=== PATIENT | female | born 1960 | race Caucasian/White ===

== ENCOUNTER 2019-09-10 05:24 | Emergency (ER) | payer MEDICARE, SELFPAY ==
[2019-09-10 05:41] VITALS: BP 157/95; PULSE 84; RESP 17; TEMP 36.9; O2SAT 97; BMI 48.9
--- NOTE | 2019-09-10 05:46 | CT_ITS ---
PROCEDURE: CT ABDOMEN PELVIS W CON CLINICAL INDICATION: abdominal pain Diffuse abdominal pain, left upper quadrant pain and cramping COMPARISON: No exams were available for comparison TECHNIQUE: IV Contrast: 75ML OPTIRAY 350 Oral Contrast 20 mL Gastroview Axial images obtained with sagittal and coronal reformats. All CT scans at the facility use one or more dose reduction, viz: automated exposure control, ma/kV adjustment per patient size (including targeted exams where dose is matched to indication, i.e. head), or iterative reconstruction technique. FINDINGS: LOWER THORAX: 3 mm noncalcified nodules present in the right middle lobe laterally nonspecific too small to categorize. Coronary artery calcification and/or stent noted in the LAD. ABDOMEN & PELVIS: Post cholecystectomy changes. The liver, spleen, adrenal glands, pancreas, and kidneys have an unremarkable appearance. No intestinal obstruction or free air. No evidence of appendicitis, intestinal obstruction, free air, or diverticulitis. No pelvic mass abnormal fluid collection or focal inflammatory change. There is degenerative disc disease at L3-L4 and L4-5 IMPRESSION: No acute finding Dictated by: Alessandro Bradshaw MD 09/10/2019 09:04 Electronically signed by Alessandro Bradshaw MD in [place] 09/10/2019 09:04
--- NOTE | 2019-09-10 06:00 | PC.NURSE ---
Patient finished gastrografin - radiology notified.
[2019-09-10 06:16] VITALS: BP 138/69; PULSE 79; RESP 16; TEMP 36.6; O2SAT 98
[2019-09-10 06:20] LABS: Microscopic, Urine URINE MICROSCOPIC (MICROSCOPIC)
[2019-09-10 06:23] LABS: Appearance,Urine CLEAR (Clear); Bilirubin,Urine Negative (Negative); Blood, Urine Negative (Negative); Color,Urine YELLOW (Yellow); Glucose,Urine (UA) Negative (Negative); Ketones,Urine Negative (Negative); Leukocyte Esterase,Urine Negative (Negative); Nitrate,Urine Negative (Negative); PH,Urine 5.5 (5.0-8.5); Protein,Urine Negative (Negative); Specific Gravity, Urine 1.015 (1.005-1.030); Urobilinogen,Urine 0.2 EU/dl (0.2)
[2019-09-10 06:24] LABS: Basophils # 0.1 K/mm3 (0-0.2); Basophils % 0.9 % (0.1-2.0); Eosinophils # 0.2 K/mm3 (0.0-0.4); Eosinophils % 1.4 % (0.1-12.0); Hematocrit 42.5 % (37.0-47.0); Hemoglobin 13.7 g/dL (12.2-16.2); Lymphocytes # 4.8 K/mm3 (0.7-4.5); Lymphocytes % 42.6 % (10-50); Mean Corpuscular HGB Conc 32.2 g/dL (31.8-35.4); Mean Corpuscular Hemoglobin 28.9 pg (27.0-31.2); Mean Corpuscular Volume 89.9 fl (81-99); Mean Platelet Volume 7.9 fl (7.4-10.4); Monocytes # 0.5 K/mm3 (0.1-1.0); Monocytes % 4.4 % (1.7-9.3); Neutrophils # 5.6 K/mm3 (1.8-7.8); Neutrophils % 50.6 % (37.0-80.0); Platelet Count 317 K/mm3 (142-424); Red Blood Count 4.73 M/mm3 (4.20-5.40); Red Cell Distribution Width 13.6 % (11.5-17.5); White Blood Count 11.1 K/mm3 (4.8-10.8)
[2019-09-10 06:36] LABS: Chloride 98 mmol/L (98-107); Potassium 4.4 mmoL/L (3.5-5.1); Sodium 140 mmol/L (136-145)
[2019-09-10 06:38] LABS: Alanine Aminotransferase 27 U/L (12-78); Amylase 80 U/L (30-110); Aspartate Amino Transferase 40 U/L (14-36); Bilirubin,Total 0.3 mg/dl (0.2-1.3); Blood Urea Nitrogen 9 mg/dl (7-17); Creatinine Clearance Estimated 83 mL/min (50-200); Estimated Glomerular Filt Rate 86 ml/min (>60); GFR (African American) 104 ML/MIN (>60)
[2019-09-10 06:39] LABS: Albumin Level 4.7 g/dl (3.5-5.0); Albumin/Globulin Ratio 1.5 (1.1-1.8); Alkaline Phosphatase 106 U/L (38-126); Anion Gap 17.4 mEq/L (5-15); Calcium 10.3 mg/dl (8.4-10.2); Carbon Dioxide 29 mmol/L (22.0-30.0); Globulin 3.2 g/dL (1.3-3.2); Glucose 182 mg/dl (74-100); Lipase 143 U/L (23-300); Total Protein,Serum 7.9 g/dl (6.3-8.2)
--- NOTE | 2019-09-10 06:52 | [facility].EDNVD ---
ED Disposition Clinical Impression: Abdominal pain Qualifiers: Abdominal location: left upper quadrant Qualified Code(s): R10.12 - Left upper quadrant pain Disposition: Home, Self-Care Condition on Discharge: Good Instructions: DI for Acute Abdomen Additional Instructions: call pcp this am for follow up Referrals: Sarah Morales [Primary Care Provider] - - Critical Care Critical Care Time: No Attestation: On 09/10/19, the high probability of a clinically significant, sudden or life threatening deterioration of the following system(s) required my full and direct attention, intervention and personal management. The time I documented below is in addition to time spent performing reported procedures but includes the following listed in this critical care notation. Medical Decision Making - Medical Records Medical records reviewed: Yes: I reviewed the patient's medical records. - Gabriel Inquiry Pt receiving controlled substance: No Vital Signs: 09/10/19 05:41 09/10/19 06:16 09/10/19 06:55 Temperature 98.4 F 97.8 F Temperature Source Oral Oral Pulse Rate [Right Brachial] 84 79 75 Respiratory Rate 17 16 16 Blood Pressure [Right Arm] 157/95 H 138/69 138/102 H Blood Pressure Mean [Right Arm] 115 92 114 Blood Pressure Source [Right Arm] Automatic Cuff Automatic Cuff Blood Pressure Position [Right Arm] Sitting Sitting Sitting 02 Sat by Pulse Oximetry 97 98 98 Oxygen Delivery Method Room Air Room Air Room Air - Lab Data Lab results reviewed: Yes: I reviewed the patient's lab results. Lab Results 09/10/19 06:08: Urine Color Yellow, Urine Appearance Clear, Urine pH 5.5, Ur Specific Mccoll 1.015, Urine Protein Negative, Urine Glucose (UA) Negative, Urine Ketones Negative, Urine Blood Negative, Urine Nitrate Negative, Urine Bilirubin Negative, Urine Urobilinogen 0.2, Ur Leukocyte Esterase Negative, Urine RBC Occasional, Urine WBC Occasional, Ur Squamous Epith Cells 10-20, Urine Bacteria 1+ 09/10/19 06:08: WBC 11.1 H, RBC 4.73, Hgb 13.7, Hct 42.5, MCV 89.9, MCH 28.9, MCHC 32.2, RDW 13.6, Plt Count 317, MPV 7.9, Neut % (Auto) 50.6, Lymph % (Auto) 42.6, [place] % (Auto) 4.4, Eos % (Auto) 1.4, Baso % (Auto) 0.9, Neut # (Auto) 5.6, Lymph # (Auto) 4.8 H, [place] # (Auto) 0.5, Eos # (Auto) 0.2, Baso # (Auto) 0.1 09/10/19 06:08: Sodium 140, Potassium 4.4, Chloride 98, Carbon Dioxide 29, Anion Gap 17.4 H, BUN 9, Creatinine 0.70, Estimated Creat Clear 83, Estimated GFR 86, Est GFR ( Amer) 104, Glucose 182 H, Calcium 10.3 H, Total Bilirubin 0.3, AST 40 H, ALT 27, Alkaline Phosphatase 106, Total Protein 7.9, Albumin 4.7, Globulin 3.2, Albumin/Globulin Ratio 1.5, Amylase 80, Lipase 143 Result diagrams: 09/10/19 06:08 09/10/19 06:08 Orders (Tests/Meds): ED MEDICATIONS Discontinued Medications Generic Name Dose Route Start Last Admin Trade Name Freq PRN Reason Stop Dose Admin Diatrizoate Meglum/Diatrizoate Sod 30 ml 09/10/19 05:51 09/10/19 05:55 Gastrografin 66%-10% 30ml PO 09/10/19 05:52 30 ml ONCE ONE Administration Sodium Chloride 1,000 mls @ 999 mls/hr 09/10/19 06:00 09/10/19 06:12 Sod Chlor 0.9% 1000ml Bag IV 09/10/19 07:00 999 mls/hr .Q1H1M INESSA Administration Ketorolac Tromethamine 30 mg 09/10/19 05:47 09/10/19 06:12 Toradol 30mg/Ml Vial IV 09/10/19 05:48 30 mg ONCE ONE Administration Ondansetron HCl 4 mg 09/10/19 06:11 09/10/19 06:13 Zofran 4mg/2ml Vial IV 09/10/19 06:12 4 mg ONCE ONE Administration ORDERS Category Date Time Status CT abdomen pelvis w con Stat Cat Scan 09/10/19 05:46 Ordered - CT Data CT Scan: Abdomen, Pelvis Time Received: 08:[address] Reviewed: Yes: I have viewed the radiologist's interpretation Preliminary Findings: Normal/NAD - Reevaluation(s) Time: 08:13 Reevaluation #1: doing ok - no sev pain at this time Medical Decision Narrative: pt with prev abd surg and has pain - will need to eval for bowel obstruction and kelly
[2019-09-10 06:55] VITALS: BP 138/102; PULSE 75; RESP 16; O2SAT 98
[2019-09-10 06:57] LABS: Bacteria,Urine 1+ /lpf; RBC,Urine Occasional #/hpf (0-3); WBC,Urine Occasional #/hpf (0-3)
[2019-09-10 08:15] VITALS: BP 130/85; PULSE 80; RESP 20; TEMP 36.8; O2SAT 98
== END 2019-09-10 08:18 | disposition home or self-care (01) ==
PROVIDERS: Emergency Provider Emergency Medicine; PCP Family Medicine
DX: R10.12 Left upper quadrant pain (principal); E11.9 Type 2 diabetes mellitus without complications; Z79.84 Long term (current) use of oral hypoglycemic drugs; Z88.0 Allergy status to penicillin; Z88.2 Allergy status to sulfonamides; Z91.040 Latex allergy status
CPT/HCPCS: 74177; 80053; 81001; 82150; 83690; 85025; 96365; 96375; 99284; J2405; Q9967